=== PATIENT | female | born 1955 | race Caucasian/White ===

== ENCOUNTER → 2017-02-24 | Outpatient (CLI) | payer MEDICAID ==
[~2017-02-24] MED LIST: IOPAMIDOL (ISOVUE-300) 100 ML BTL ONE
== END ==
LOC: FIMAGING 15:06
PROVIDERS: ATTEND Physician Assistant
DX: K57.32 Diverticulitis of large intestine without perforation or abscess without bleeding (principal); D25.9 Leiomyoma of uterus, unspecified; K44.9 Diaphragmatic hernia without obstruction or gangrene; R91.1 Solitary pulmonary nodule
CPT/HCPCS: Q9967

== ENCOUNTER 2017-04-28 09:39 | Day surgery (SDC) | payer MEDICAID ==
[~2017-04-28 09:39] MED LIST changes: -IOPAMIDOL (ISOVUE-300) 100 ML BTL ONE; +PROPOFOL/EMULSION 500 MG/50 ML BOTTLE IV ONE
[2017-04-28] MEDS ORDERED: LIDOCAINE 2% 5 ML SDV ONE ×2 (09:40→10:50)
[2017-04-28] MEDS ORDERED: LIDOCAINE 1% 2 ML INJ ID PRN (10:11)
[2017-04-28] MEDS ORDERED: LR 1,000 ML IV ONE (10:11)
--- NOTE | 2017-04-28 10:43 | PDGENHP ---
History & Physical Chief Complaint: F/u of abnormal CT scan Relevant Physical Exam: GEN: NAD. Cardiac: RRR. Lungs: CTA B. Abd: soft, nt, nd
--- NOTE | 2017-04-28 10:46 | PDANEPAE ---
ANE History of Present Illness Colonoscopy ANE Past Medical History - Cardiovascular History Hx Hypertension: No Hx Arrhythmias: No Hx Chest Pain: No Hx Coronary Artery / Peripheral Vascular Disease: No Hx CHF / Valvular Disease: No Hx Palpitations: No - Pulmonary History Hx COPD: No Hx Asthma/Reactive Airway Disease: No Hx Recent Upper Respiratory Infection: No Hx Oxygen in Use at Home: No Hx Sleep Apnea: Yes Sleep Apnea Screening Result - Last Documented: Positive Pulmonary History Comment: Bi- Pap - Neurologic History Hx Cerebrovascular Accident: No Hx Seizures: No Hx Dementia: No - Endocrine History Hx Diabetes: No Hypothyroid: No Hyperthyroid: No - Renal History Hx Renal Disorders: No - Liver History Hx Hepatic Disorders: No - Neurological & Psychiatric Hx Hx Neurological and Psychiatric Disorders: No - Cancer History Hx Cancer: Yes Cancer History Comment: Breast-bilateral. 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 Bilateral lumpectomies and bilateral whole breast radiation - Congenital Disorder History Hx Congenital Disorders: No - GI History GERD: moderate Hx Gastrointestinal Disorders: Yes Gastrointestinal History Comment: diverticulosis - Chronic Pain History Chronic Pain: No - Surgical History Prior Surgeries: vulvoectomy 2017 secondary to dysplasia - lichen sclerosis. R hip replacement 2016. multiple surgeries ANE Review of Systems Review of Systems: - Exercise capacity METS (RN): 4 METS ANE Patient History - Allergies Allergies/Adverse Reactions: celecoxib [From Celebrex] Allergy (Intermediate, Verified 12/13/15 10:18) "huge welts" nitrofurantoin macrocrystalline [From Macrodantin] Allergy (Verified 12/13/15 10 :11) Other-Enter Comments SEASONAL Allergy (Uncoded 03/26/14 13:29) SINUS DRAINAGE/DRY COUGH - Home Medications Home Medications: CALCIUM CARBONATE/VITAMIN D3 [CALCIUM + D 600 MG TABLET] 2 each PO DAILY [Last Taken 2 Days Ago ~04/26/17] Clobetasol Propionate [Cormax] 1 rosario TP DAILY PRN 09/10/12 [Last Taken 1 Day Ago ~04/27/17] Cinnamon 04/24/17 [Last Taken 2 Days Ago ~04/26/17] Co Q-10 100 mg Softgel 04/24/17 [Last Taken 2 Days Ago ~04/26/17] Flax Seed Oil 1,300 mg Softgel 04/24/17 [Last Taken 2 Days Ago ~04/26/17] GARLIC 04/24/17 [Last Taken 2 Days Ago ~04/26/17] Red Yeast Rice 04/24/17 [Last Taken 2 Days Ago ~04/26/17] Vitamin D3 2000 units tab (OTC) 04/24/17 [Last Taken 2 Days Ago ~04/26/17] Voltaren 0.1% (*) 04/24/17 [Last Taken 1 Day Ago ~04/27/17] - NPO status NPO Since - Liquids (Date): 04/28/17 NPO Since - Liquids (Time): 00:30 NPO Since - Solids (Date): 04/27/17 NPO Since - Solids (Time): 08:00 - Anes Hx Anes Hx: no prior problems - Smoking Hx Smoking Status: Never smoked Marijuana use: No - Alcohol Use Alcohol Use: Occasionally - Family Anes Hx Family Anes Hx: none Family Hx Anesthesia Complications: none ANE Labs/Vital Signs - Vital Signs Blood Pressure: 159/84 Heart Rate: 71 Respiratory Rate: 18 O2 Sat (%): 94 Height: 180.34 cm Weight: 120.202 kg ANE Physical Exam - Airway Neck exam: decreased ROM Mallampati Score: Class 3 Mouth exam: normal dental/mouth exam - Pulmonary Pulmonary: no respiratory distress - Cardiovascular Cardiovascular: regular rate and rhythym - ASA Status ASA Status: III ANE Anesthesia Plan Anesthesia Plan: GA with mask Total IV Anesthesia: Yes
[2017-04-28] MEDS ORDERED: MIDAZOLAM 2 MG/2 ML VIAL IVP ONE (10:48)
[2017-04-28] MEDS ORDERED: PROPOFOL/EMULSION 500 MG/50 ML BOTTLE IV ONE (10:50)
[2017-04-28] MEDS ORDERED: ACETAMINOPHEN 500 MG TAB PO PRN (11:09)
[2017-04-28] MEDS ORDERED: NALOXONE HCL 0.4 MG/ML INJ IVP PRN (11:09)
[2017-04-28] MEDS ORDERED: ONDANSETRON 4 MG/2 ML VIAL IVP PRN (11:09)
[2017-04-28] MEDS ORDERED: ONDANSETRON 4 MG/2 ML VIAL ONE (11:19)
--- NOTE | 2017-04-28 11:28 | GIREPORT ---
[facility] - Endoscopy Department Patient Name: Abi Hernandez Procedure Date: 04/28/2017 10:40 AM Patient Type: Outpatient Attending / [place] Physician: Roni Tam MD Procedure: Colonoscopy Indications: Follow-up of diverticulitis. Personal hx of colon polyps. Her last colonoscopy was 5 years ago. Providers: Roni aTm MD Medicines: Monitored Anesthesia Care Complications: No immediate complications. Findings: The perianal and digital rectal examinations were normal. The terminal ileum appeared normal. Many medium-mouthed diverticula were found in the sigmoid colon and descending colon. A 2 mm polyp was found in the rectum. The polyp was sessile. The polyp was removed with a cold biopsy forceps. Resection and retrieval were complete. Verification of patient identification for the specimen was done by the physician and nurse using the patient's name and date. Estimated blood loss was minimal. Internal hemorrhoids were found during retroflexion. The hemorrhoids were Grade I (internal hemorrhoids that do not prolapse). No additional abnormalities were found on retroflexion. Estimated Blood Loss: Estimated blood loss: none. Post Op Diagnosis: - The examined portion of the ileum was normal. - Diverticulosis in the sigmoid colon and in the descending colon. - One 2 mm polyp in the rectum, removed with a cold biopsy forceps. Resected and retrieved. - Internal hemorrhoids. Recommendation: - Discharge patient to home (with escort). - High fiber diet. - Continue present medications. - Repeat colonoscopy in 5 years for surveillance (personal history of polyps). - Your pathology results are available within 10 days. - Thank you for allowing me to participate in the care of your patient. Attending Participation: I personally performed the entire procedure. Roni Tam MD Roni Tam MD 04/28/2017 11:27:51 AM Number of Addenda: 0 Note Initiated On: 04/28/2017 10:40 AM Total Procedure Duration Time 0 hours 18 minutes 40 seconds [email or web address]}
--- NOTE | 2017-04-28 11:56 | POSTANESTH ---
Post Anesthetic Evaluation Cardiovascular Status: Normal, Stable Respiratory Status: Normal, Stable Level of Consciousness/Mental Status: Can Participate in Eval Pain Control: Adequate, Prn Tx Ordered Nausea/Vomiting Control: Adequate, Prn Tx Ordered Complications Possibly Related to Anesthesia: None Noted
[2017-04-28 12:27] VITALS: BP 121/93; PULSE 60; RESP 16; TEMP 97.2; O2SAT 95
== END 2017-04-28 12:32 | disposition home or self-care (01) ==
LOC: FSGY 09:39
PROVIDERS: ATTEND Internal Medicine Gastroenterology
PROC: 0DJD8ZZ Inspection of Lower Intestinal Tract, Via Natural or Artificial Opening Endoscopic (ICD-10-PCS; principal; 2017-04-28 11:00)
PROC: 0DBP8ZX Excision of Rectum, Via Natural or Artificial Opening Endoscopic, Diagnostic (ICD-10-PCS; principal; 2017-04-28 11:00)
DX: K57.30 Diverticulosis of large intestine without perforation or abscess without bleeding (principal); K62.1 Rectal polyp; K64.8 Other hemorrhoids; Z86.010 Personal history of colon polyps
CPT/HCPCS: J2250; J2405; J2704

== ENCOUNTER → 2017-09-15 | Outpatient (CLI) | payer MEDICAID | LOC: BMCIMAGING 08:33 | PROVIDERS: ATTEND Internal Medicine Hematology & Oncology | DX: Z12.31 Encounter for screening mammogram for malignant neoplasm of breast (principal); Z85.3 Personal history of malignant neoplasm of breast ==

== ENCOUNTER 2018-02-25 07:36 | Day surgery (SDC) | payer MEDICAID ==
[2018-02-25] MEDS ORDERED: LIDOCAINE 1% 2 ML INJ ID PRN (08:51)
[2018-02-25] MEDS ORDERED: LR 1,000 ML IV ONE (08:51)
[2018-02-25] MEDS ORDERED: fentaNYL 100 MCG/2 ML INJ ONE (09:45)
[2018-02-25] MEDS ORDERED: LIDOCAINE 2% 100 MG/5 ML SYR ONE (09:45)
[2018-02-25] MEDS ORDERED: PROPOFOL/EMULSION 500 MG/50 ML BOTTLE IV ONE (09:45)
--- NOTE | 2018-02-25 09:47 | PDGENHP ---
History and Physical History and Physical: 62yo female with hx of GERD and dysphagia. Hx of obesity and sleep apnea. Plan: EGD with bx and dilation with anesthesia.
--- NOTE | 2018-02-25 09:49 | PDANEPAE ---
ANE Past Medical History - Cardiovascular History Hx Hypertension: No Hx Arrhythmias: No Hx Chest Pain: No Hx Coronary Artery / Peripheral Vascular Disease: No Hx CHF / Valvular Disease: No Hx Palpitations: No - Pulmonary History Hx COPD: No Hx Asthma/Reactive Airway Disease: No Hx Recent Upper Respiratory Infection: No Hx Oxygen in Use at Home: Yes O2 in Use at Home (L/minute): 2.L Hx Sleep Apnea: Yes Sleep Apnea Screening Result - Last Documented: Positive Pulmonary History Comment: Bi- Pap - Neurologic History Hx Cerebrovascular Accident: No Hx Seizures: No Hx Dementia: No - Endocrine History Hx Diabetes: No - Renal History Hx Renal Disorders: No - Liver History Hx Hepatic Disorders: No - Neurological & Psychiatric Hx Hx Neurological and Psychiatric Disorders: No - Cancer History Hx Cancer: Yes Cancer History Comment: Breast-bilateral. 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 Bilateral lumpectomies and bilateral whole breast radiation - Congenital Disorder History Hx Congenital Disorders: No - GI History Hx Gastrointestinal Disorders: Yes Gastrointestinal History Comment: diverticulosis,gerd, - Other Health History Other Health History: lymphedema on Left. varicos veins stripped and ablated - Chronic Pain History Chronic Pain: Yes (bad arthritis spine and knees) - Surgical History Prior Surgeries: vulvoectomy 2017 secondary to dysplasia - lichen sclerosis. R hip replacement 2016. multiple surgeries ANE Review of Systems Review of Systems: - Exercise capacity METS (RN): 4 METS ANE Patient History - Allergies Allergies/Adverse Reactions: celecoxib [From Celebrex] Allergy (Intermediate, Verified 02/25/18 08:59) "huge welts" nitrofurantoin macrocrystalline [From Macrodantin] Allergy (Verified 02/25/18 08 :59) Other-Enter Comments SEASONAL Allergy (Uncoded 02/19/18 11:05) SINUS DRAINAGE/DRY COUGH - Home Medications Home Medications: CALCIUM CARBONATE/VITAMIN D3 [CALCIUM + D 600 MG TABLET] 09/10/12 [Last Taken 02/18/18] Clobetasol Propionate [Cormax] 09/10/12 [Last Taken 02/24/18] Cinnamon 04/24/17 [Last Taken 02/18/18] Co Q-10 100 mg Softgel 04/24/17 [Last Taken 02/18/18] Flax Seed Oil 1,300 mg Softgel 04/24/17 [Last Taken 02/18/18] GARLIC 04/24/17 [Last Taken 02/18/18] Red Yeast Rice 04/24/17 [Last Taken 02/18/18] Vitamin D3 2000 units tab (OTC) 04/24/17 [Last Taken 02/18/18] Voltaren 0.1% (*) 04/24/17 [Last Taken 02/24/18 20:00] Ranitidine HCl 02/19/18 [Last Taken 02/25/18 06:00] - NPO status NPO Since - Liquids (Date): 02/24/18 NPO Since - Liquids (Time): 22:00 NPO Since - Solids (Date): 02/24/18 NPO Since - Solids (Time): 20:00 - Smoking Hx Smoking Status: Never smoked - Family Anes Hx Family Hx Anesthesia Complications: none ANE Labs/Vital Signs - Vital Signs Blood Pressure: 160/91 Heart Rate: 65 Respiratory Rate: 16 O2 Sat (%): 93 Height: 180.34 cm Weight: 120.656 kg ANE Physical Exam - Airway Neck exam: FROM Mallampati Score: Class 3 Mouth exam: normal dental/mouth exam - Pulmonary Pulmonary: no respiratory distress - Cardiovascular Cardiovascular: regular rate and rhythym - ASA Status ASA Status: III ANE Anesthesia Plan Total IV Anesthesia: Yes
--- NOTE | 2018-02-25 10:02 | GIREPORT ---
[facility] Surgical Services - Endoscopy Department Patient Name: Abi Hernandez Procedure Date: 02/25/2018 9:35 AM Patient Type: Outpatient Attending MD/ ER Physician: Giuliano Mistry MD Procedure: Upper GI endoscopy Indications: Dysphagia, Heartburn Providers: Giuliano Mistry MD Medicines: Sedation Required Anesthesia Staff Assistance Complications: No immediate complications. Description of Procedure: After obtaining informed consent, the endoscope was passed under direct vision. Throughout the procedure, the patient's blood pressure, pulse, and oxygen saturations were monitored continuously. The Endoscope was intro duced through the mouth, and advanced to the third part of duodenum. The uppe r GI endoscopy was accomplished without difficulty. The patient tolerated th e procedure well. Findings: The examined esophagus was normal. Biopsies were taken with a cold [facility] eps for histology. A guidewire was placed and the scope was withdrawn. Dila tion was performed with a Savary dilator with no resistance at 54 Fr. Diffuse mild inflammation characterized by congestion (edema) and eryth jason was found in the entire examined stomach. Biopsies were taken with a co ld forceps for histology. The examined duodenum was normal. Estimated Blood Loss: Estimated blood loss: none. Post Op Diagnosis: - Normal esophagus. Biopsied. Dilated. - Gastritis. Biopsied. - Normal examined duodenum. Recommendation: - Written discharge instructions were provided to the patient. - The signs and symptoms of potential delayed complications were discus sed with the patient. - Patient has a contact number available for emergencies. - Return to normal activities tomorrow. - Resume previous diet. - Continue present medications. - Await pathology results. Attending Participation: I personally performed the entire procedure. Giuliano Mistry MD Giuliano Mistry MD 02/25/2018 10:01:48 AM This report has been signed electronicallyGiuliano Mistry MD Number of Addenda: 0 Note Initiated On: 02/25/2018 9:35 AM [email or web address]
[2018-02-25] MEDS ORDERED: NALOXONE HCL 0.4 MG/ML INJ IVP PRN (10:08)
[2018-02-25] MEDS ORDERED: ONDANSETRON 4 MG/2 ML VIAL IVP PRN (10:08)
[2018-02-25] MEDS ORDERED: ALBUTEROL 3 ML DEYVIAL IH PRN (10:08)
--- NOTE | 2018-02-25 10:08 | POSTANESTH ---
Post Anesthetic Evaluation Cardiovascular Status: Similar to Pre-Op Cond Respiratory Status: Similar to Pre-op Cond. Level of Consciousness/Mental Status: Alert and Oriented Pain Control: Adequate, Prn Tx Ordered Nausea/Vomiting Control: Adequate, Prn Tx Ordered Complications Possibly Related to Anesthesia: None Noted
[2018-02-25 11:11] VITALS: BP 127/75
== END 2018-02-25 11:32 | disposition home or self-care (01) ==
LOC: FSGY 07:36
PROVIDERS: ATTEND Internal Medicine Gastroenterology
DX: K21.9 Gastro-esophageal reflux disease without esophagitis (principal); R13.10 Dysphagia, unspecified; I89.0 Lymphedema, not elsewhere classified; G47.33 Obstructive sleep apnea (adult) (pediatric); Z85.3 Personal history of malignant neoplasm of breast; Z96.641 Presence of right artificial hip joint
CPT/HCPCS: J2001; J2704; J3010

== ENCOUNTER → 2018-09-16 | Outpatient (CLI) | payer MEDICAID | LOC: FIMAGING 12:47 | PROVIDERS: ATTEND Internal Medicine Hematology & Oncology | DX: Z12.31 Encounter for screening mammogram for malignant neoplasm of breast (principal); Z85.3 Personal history of malignant neoplasm of breast ==